=== PATIENT | female | born 1950 | race Caucasian/White ===

== ENCOUNTER 2023-11-28 09:33 | Emergency (ER) | payer MEDICARE, BC ==
[~2023-11-28] VITALS: Ht 160 cm; Wt 54.0 kg
[2023-11-28] MEDS: SODIUM CHLORIDE 0.9% 500 ML IV ONE (12:28)
[2023-11-28 12:46] LABS: Urine Bacteria NONE SEEN /hpf (None Seen); Urine Blood TRACE /uL (Negative); Urine Clarity Clear (Clear); Urine Hyaline Cast FEW /lpf (0 - 2); Urine Mucus FEW (None Seen); Urine Protein, UAD Negative (Negative); Urine Specific Gravity 1.018 (1.001-1.035); Urine Urobilinogen Normal (Negative); Urine WBC <1 /hpf (0 - 5)
[2023-11-28 12:47] LABS: Urine Color Straw (Yellow)
[2023-11-28 13:32] LABS: Basophils # (auto) 0.1 10 ^3/uL (0-0.2); Hemoglobin 12.5 g/dL (12.2-16.2); Monocytes # (auto) 1.3 10 ^3/uL (0-1.3); Nucleated Red Blood Cells % 0.1 %; White Blood Cell 12.1 10^3/uL (4.4-10.8)
[2023-11-28 13:34] LABS: Basophils % (auto) 0.7 % (0.0-2.0); Eosinophils # (auto) 0.9 10 ^3/uL (0-0.8); Eosinophils % (auto) 7.2 % (0.0-7.0); Hematocrit 37.7 % (36.0-46.0); Lymphocytes % (auto) 8.7 % (10.0-50.0); Mean Corpuscular Hgb Conc. 33.2 g/dL (32.0-36.0); Mean Corpuscular Volume 93.3 fL (80.0-100.0); Monocytes % (auto) 10.7 % (0.0-12.0); Neutrophils # (auto) 8.8 10 ^3/uL (1.6-8.6); Neutrophils % (auto) 72.7 % (37.0-80.0); Red Blood Cells 4.04 10^6/uL (4.0-5.20)
[2023-11-28 13:42] LABS: Chloride 104 mmol/L (98-107); Sodium 133 mmol/L (136-145)
[2023-11-28 13:43] LABS: Anion Gap 5 (5-15); Calcium 9.6 mg/dL (8.7-10.4); Carbon Dioxide 24 mmol/L (20-30)
[2023-11-28 13:48] LABS: Blood Urea Nitrogen 11 mg/dL (9-23); Glucose 96 mg/dL (74-106)
[2023-11-28 14:05] LABS: INR 0.98 (0.9-1.15); Partial Thromboplastin Time 26.1 SEC (24.5-34.5); Prothrombin Time 10.3 sec (9.3-11.8)
[2023-11-28 15:49] VITALS: BP 139/77; PULSE 68; RESP 18; TEMP 98; O2SAT 99
[2023-12-11] MEDS ORDERED: VALS160T84 PO (21:50)
[2023-12-11] MEDS ORDERED: [UNRECOGNIZED DRUG - CODE] PO (21:50)
== END 2023-11-28 15:50 | disposition home or self-care (01) ==
LOC: ER 09:33
DX: K62.5 Hemorrhage of anus and rectum (principal); I10 Essential (primary) hypertension; Z88.2 Allergy status to sulfonamides
CPT/HCPCS: 36415; 71046; 80048; 81001; 83735; 85025; 85610; 85730; 96360; 99284; J7040